=== PATIENT | male | born 1970 | race Caucasian/White ===

== ENCOUNTER → 2022-11-04 09:10 | Outpatient (BNVA) | payer SELFPAY | PROVIDERS: Visit Provider Physician Assistant Medical | DX: S67.02XA Crushing injury of left thumb, initial encounter (principal); W31.89XA Contact with other specified machinery, initial encounter | CPT/HCPCS: 73140; 99204 ==

== ENCOUNTER → 2022-11-06 10:37 | Outpatient (BNVA) | payer SELFPAY | PROVIDERS: Visit Provider Physician Assistant | DX: S67.02XA Crushing injury of left thumb, initial encounter (principal); W31.89XA Contact with other specified machinery, initial encounter | CPT/HCPCS: 99213 ==